=== PATIENT | female | born 1975 | race Two or more races ===

== ENCOUNTER 2021-04-29 16:09 | Emergency (ER) | payer OTHER ==
[~2021-04-29] VITALS: Ht 167.6 cm; Wt 95.3 kg
[~2021-04-29 16:09] MED LIST: SYNTHROID137 MCG
[2021-04-29] MEDS ORDERED: ZOFRAN8 MG PO (22:35)
== END 2021-04-29 22:45 | disposition home or self-care (01) ==
LOC: ER 16:09
DX: R11.10 Vomiting, unspecified (principal)

== ENCOUNTER 2022-06-23 10:46 | Outpatient (CLI) | payer OTHER ==
[~2022-06-23 10:46] MED LIST changes: +ZOFRAN8 MG PO
== END 2022-06-23 10:54 | disposition home or self-care (01) ==
LOC: MAMO-SONO 10:46
PROVIDERS: ATTEND Obstetrics & Gynecology Maternal & Fetal Medicine
DX: Z12.31 Encounter for screening mammogram for malignant neoplasm of breast (principal); N63.0 Unspecified lump in unspecified breast; N64.4 Mastodynia; N60.11 Diffuse cystic mastopathy of right breast; R10.2 Pelvic and perineal pain

== ENCOUNTER 2023-07-29 08:14 | Outpatient (CLI) | payer OTHER | END 2023-07-29 08:27 | disposition home or self-care (01) | LOC: MAMO-SONO 08:14 | PROVIDERS: ATTEND Obstetrics & Gynecology Maternal & Fetal Medicine | DX: N63 Unspecified lump in breast (principal); Z12.31 Encounter for screening mammogram for malignant neoplasm of breast; N64.4 Mastodynia; N60.11 Diffuse cystic mastopathy of right breast ==

== ENCOUNTER 2025-04-10 12:50 | Outpatient (CLI) | payer OTHER | END 2025-04-10 13:02 | disposition home or self-care (01) | LOC: MAMO-SONO 12:50 | PROVIDERS: ATTEND Obstetrics & Gynecology Maternal & Fetal Medicine | DX: N63.0 Unspecified lump in unspecified breast (principal); N64.4 Mastodynia; N60.11 Diffuse cystic mastopathy of right breast; Z12.31 Encounter for screening mammogram for malignant neoplasm of breast; M00-M99 Diseases of the musculoskeletal system and connective tissue; M75.42 Impingement syndrome of left shoulder ==

== ENCOUNTER 2025-04-29 07:48 | Outpatient (CLI) | payer OTHER | END 2025-04-29 07:50 | disposition home or self-care (01) | LOC: MAMO-SONO 07:48 | PROVIDERS: ATTEND Obstetrics & Gynecology Maternal & Fetal Medicine | DX: R92.0 Mammographic microcalcification found on diagnostic imaging of breast (principal); N63.11 Unspecified lump in the right breast, upper outer quadrant ==